=== PATIENT | male | born 1990 | race Two or more races ===

== ENCOUNTER 2020-04-25 11:40 | Outpatient (CLI) | payer OTHER, SELFPAY ==
[2020-04-25 12:33] LABS: Anion Gap 7 mmol/L (8-16); Blood Urea Nitrogen 12 mg/dL (9-20); Carbon Dioxide 28 mmol/L (22-30); Chloride 103 mmol/L (98-107); Cholesterol 192 mg/dL (0-200); Estimated Glomerular Filt Rate > 60; Glucose 92 mg/dL (75-110); HDL Direct 34 mg/dL; Potassium 3.9 mmol/L (3.4-5.0); Sodium 138 mmol/L (137-145); Triglycerides 92 mg/dL (<150)
[2020-04-25 12:44] LABS: LDL Cholesterol Direct 142 mg/dL
[2020-04-25 17:24] LABS: Vitamin D 25 Hydroxy 18.5 ng/mL
[2020-04-28 10:56] LABS: Testosterone Free 54.4 pg/mL (35.0-155.0); Testosterone Total 386 ng/dL (250-1100)
== END 2020-04-25 11:41 | disposition home or self-care (01) ==
LOC: ANHLAB 11:47
PROVIDERS: PCP Family Medicine; Visit Provider Nurse Practitioner Family
DX: Z13.220 Encounter for screening for lipoid disorders (principal); R53.83 Other fatigue; Z13.1 Encounter for screening for diabetes mellitus; Z13.29 Encounter for screening for other suspected endocrine disorder; N52.9 Male erectile dysfunction, unspecified
CPT/HCPCS: 36415; 80048; 80061; 82306; 84402; 84403; 84443

== ENCOUNTER 2020-06-27 13:20 | Outpatient (CLI) | payer OTHER, SELFPAY ==
[2020-06-27 15:00] LABS: Vitamin D 25 Hydroxy 43.2 ng/mL
[2020-07-04 12:10] LABS: Testosterone Free 73.8 pg/mL (35.0-155.0); Testosterone Total 399 ng/dL (250-1100)
== END 2020-06-27 13:21 | disposition home or self-care (01) ==
PROVIDERS: PCP Family Medicine; Visit Provider Nurse Practitioner Family
DX: N52.9 Male erectile dysfunction, unspecified (principal); E55.9 Vitamin D deficiency, unspecified
CPT/HCPCS: 36415; 82306; 84402; 84403

== ENCOUNTER → 2020-07-05 15:37 | Outpatient (CLI) | payer OTHER, SELFPAY ==
--- NOTE | ~2020-07-05 | XR_ITS ---
EXAMINATION: XR lumbar spine 2-3V DATE: 07/05/2020 17:13 INDICATION: Low back pain. TECHNIQUE: 3 views of lumbar spine were obtained. COMPARISON: Lumbar spine radiograph 09/21/2013 FINDINGS: There is 6 degrees dextrocurvature of lumbar spine. Vertebral body heights and intervertebr al disc heights are normal. The facet joints are unremarkable. IMPRESSION: 1. No etiology for the patient's symptoms. Reviewed, dictated and finalized at location A.
== END ==
PROVIDERS: PCP Family Medicine; Visit Provider Nurse Practitioner Family
DX: M54.5 Low back pain (principal)
CPT/HCPCS: 72100

== ENCOUNTER → 2020-12-13 10:53 | Outpatient (CLI) | payer OTHER, SELFPAY ==
--- NOTE | ~2020-12-13 | MR_ITS ---
EXAMINATION: MR ankle RT wo con DATE: 12/13/2020 11:38 INDICATION: Pain in right ankle and joints of right foot. TECHNIQUE: Magnetic resonance imaging (MRI) of the right ankle was performed without intravenous cont rast. Sequences included sagittal PD-weighted FS FSE, sagittal PD-weighted FSE, coronal PD-weighted F S FSE, coronal PD-weighted FSE, axial PD-weighted FS FSE, and axial PD-weighted FSE. COMPARISON: Right ankle radiographs 10/12/2020 FINDINGS: Medial ankle ligaments: There are changes of prior sprain involving the superficial component of the deltoid ligament charact erized by thickening and increased signal intensity. The deep component of the deltoid ligament is in tact. Lateral ankle ligaments: There is a complete tear of anterior talofibular ligament. There are changes of prior sprain of calca jarred fibular ligament characterized by increased signal intensity. Posterior talofibular ligament is normal. The anterior and posterior tibiofibular ligaments are normal. Tendons: There is a longitudinal split tear of peroneus brevis tendon. Peroneus longus tendon is normal. The a nterior and medial ankle tendons are normal. Achilles tendon is normal. Plantar fascia: The plantar fascia is normal. There is an enthesophyte at the calcaneal attachment. Bones/other: Bone alignment is normal. No fracture. Talar dome is normal. Fluid: There is a small ankle joint effusion. There is subcutaneous edema at the medial and lateral aspects of the ankle. IMPRESSION: 1. Changes of medial and lateral ankle sprains. 2. Longitudinal split tear of peroneus brevis tendon. 3. Small ankle joint effusion. Reviewed, dictated and finalized at location A.
== END ==
PROVIDERS: PCP Family Medicine; Visit Provider Orthopaedic Surgery
DX: S86.312A Strain of muscle(s) and tendon(s) of peroneal muscle group at lower leg level, left leg, initial encounter (principal); S93.401A Sprain of unspecified ligament of right ankle, initial encounter; M25.471 Effusion, right ankle
CPT/HCPCS: 73721